=== PATIENT | female | born 1980 | race Caucasian/White ===

== ENCOUNTER 2020-05-07 14:47 | Outpatient (CLI) | payer BC ==
--- NOTE | 2020-05-07 15:35 | RAD ---
Radiograph thoracic spine 3 views: 05/07/2020 HISTORY: 39-year-old female with "compression fracture of thoracic vertebra" Mid back pain. COMPARISON: None FINDINGS: Minimal, right-convex lateral curvature centered at mid T-spine. Thoracic vertebral body heights are maintained. Pedicles appear to be grossly intact on AP view. No high-grade discogenic degenerative changes. Lateral view demonstrates mild, shallow broad depression of superior endplate of T12, incomp letely imaged. This is better demonstrated on the lumbar spine radiograph of 04/29/2020. A noncontrast MRI of the lumbar spine with be able to distinguish whether this is chronic or acute/suba cute. IMPRESSION: No major pathology of thoracic spine identified.
== END 2020-05-07 14:48 | disposition home or self-care (01) ==
LOC: BICRAD 14:47
PROVIDERS: ATTEND Nurse Practitioner Family
DX: S22.000A Wedge compression fracture of unspecified thoracic vertebra, initial encounter for closed fracture (principal)
CPT/HCPCS: 72070

== ENCOUNTER 2020-05-18 11:10 | Outpatient (CLI) | payer BC, OTHER ==
[2020-05-19 12:23] LABS: SARS-CoV-2 MS2 Positive; SARS-CoV-2 N Gene Negative; SARS-CoV-2 S Gene Negative; SARS-CoV-2 orf1ab Negative
== END 2020-05-18 11:11 | disposition home or self-care (01) ==
LOC: LABSCS 11:10
PROVIDERS: ATTEND Nurse Practitioner Family
DX: Z01.812 Encounter for preprocedural laboratory examination (principal); Z11.59 Encounter for screening for other viral diseases
CPT/HCPCS: 87635; U0003

== ENCOUNTER 2020-05-22 09:50 | Day surgery (SDC) | payer BC ==
[2020-05-21 09:47] VITALS: BMI 32.8
[2020-05-22] MEDS ORDERED: Fentanyl 100 MCG/2 ML VIAL ONE ×2 (11:50→14:14)
[2020-05-22] MEDS ORDERED: Ondansetron PF 4 MG/2 ML Vial ONE (13:39)
[2020-05-22] MEDS ORDERED: PROPOFOL 200 MG/20 ML VIAL ONE (13:39)
--- NOTE | 2020-05-22 13:45 | MRI ---
MRI THORACIC SPINE WITHOUT CONTRAST: 05/22/20 INDICATION: History of thoracic spinal compression fracture. COMPARISON: Radiographs dated 05/07/20. FINDINGS: The bone marrow signal intensity appears within normal limits without evidence of acute fracture. Sma ll suspected hemangioma seen within an inferior aspect of the T8 vertebral body. Spinal cord appears within normal limits. Spinal alignment is within normal limits. No appreciable central canal or neura l foraminal narrowing is evident. There are parenchymal opacities seen within the posterior lungs dom aterally which is nonspecific but may reflect subsegmental atelectasis or pneumonia. Recommend correl ation with chest radiograph. IMPRESSION: 1. No acute fracture demonstrated. 2. Parenchymal opacity within both lower lobes may reflect subsegmental atelectasis, edema or pn eumonia. Recommend correlation with a chest radiograph. Code T POS: [id number]
--- NOTE | 2020-05-22 13:46 | MRI ---
MRI Lumbar Spine Noncontrast: HISTORY: Compression fracture thoracic vertebra. Lifting injury in January. Patient claims of severe low to mid back pain. COMPARISON: None FINDINGS: The visualized retroperitoneal structures demonstrate a normal appearance. Conus medullaris is normal in morphology and terminates at the L2-3 level. There is minimal height loss of the superior endplate of the L1 vertebral body, but no marrow edema i s appreciated. The adjacent intervertebral disc demonstrates normal signal intensity. This may be developmental in origin versus minimal remote compression injury. T12-L1: Minimal central disc protrusion is present without significant central canal or neural denisse inal narrowing. L1-2: There is no disc bulge or disc herniation. Central spinal canal and neural foramina are patent. L2-3: There is no disc bulge or disc herniation. Central spinal canal and neural foramina are patent. L3-4: There is no disc bulge or disc herniation. Central spinal canal and neural foramina are patent. L4-5: Tiny focus of increased T2-weighted signal intensity at the posterior central margin of interve rtebral disc likely related to tiny annular tear. There is minimal disc bulge at this level with slight effacement of the ventral aspect of thecal sac. Central spinal canal and neural foramina are p atent. L5-S1: Mild loss of intervertebral disc height. Central disc protrusion is present with AP dimension of approximately 6 mm. This results in mass effect on the central aspect of the anterior thecal sac. Neural foramina are patent. IMPRESSION: 1. Minimal disc degenerative changes lower lumbar spine without significant central canal or neural f oraminal narrowing present.
== END 2020-05-22 14:50 | disposition home or self-care (01) ==
LOC: SDC/OP 09:50
PROVIDERS: ATTEND Nurse Practitioner Family
DX: S22.000A Wedge compression fracture of unspecified thoracic vertebra, initial encounter for closed fracture (principal); S32.000A Wedge compression fracture of unspecified lumbar vertebra, initial encounter for closed fracture; M51.27 Other intervertebral disc displacement, lumbosacral region; M54.16 Radiculopathy, lumbar region; F41.9 Anxiety disorder, unspecified; J45.909 Unspecified asthma, uncomplicated; E78.00 Pure hypercholesterolemia, unspecified; G89.29 Other chronic pain; F32.9 Major depressive disorder, single episode, unspecified; F17.210 Nicotine dependence, cigarettes, uncomplicated; Z79.899 Other long term (current) drug therapy; Z88.5 Allergy status to narcotic agent; X50.0XXA Overexertion from strenuous movement or load, initial encounter
CPT/HCPCS: 72146; 72148; J2001; J2405; J2704; J3010

== ENCOUNTER 2020-08-13 12:15 | Outpatient (CLI) | payer BC | END 2020-08-13 12:16 | disposition home or self-care (01) | LOC: EEG 12:15 | PROVIDERS: ATTEND Psychiatry & Neurology Neurology | DX: G40.209 Localization-related (focal) (partial) symptomatic epilepsy and epileptic syndromes with complex partial seizures, not intractable, without status epilepticus (principal) | CPT/HCPCS: 95816 ==

== ENCOUNTER 2020-08-18 08:48 | Outpatient (CLI) | payer BC, OTHER ==
[2020-08-18 17:27] LABS: SARS-CoV-2 MS2 Positive; SARS-CoV-2 N Gene Negative; SARS-CoV-2 S Gene Negative; SARS-CoV-2 by NAA Not Detected (NotDetected); SARS-CoV-2 orf1ab Negative
== END 2020-08-18 08:49 | disposition home or self-care (01) ==
LOC: LABBT 08:48
PROVIDERS: ATTEND Psychiatry & Neurology Neurology
DX: G40.209 Localization-related (focal) (partial) symptomatic epilepsy and epileptic syndromes with complex partial seizures, not intractable, without status epilepticus (principal); G43.109 Migraine with aura, not intractable, without status migrainosus; Z20.828 Contact with and (suspected) exposure to other viral communicable diseases
CPT/HCPCS: 87635; U0003

== ENCOUNTER 2020-08-21 08:53 | Day surgery (SDC) | payer BC ==
[2020-08-19 12:43] VITALS: BMI 29.2
[2020-08-21] MEDS ORDERED: Fentanyl 100 MCG/2 ML VIAL ONE ×3 (09:04→11:45)
[2020-08-21] MEDS ORDERED: Midazolam HCl 2 mg/2 ml Vial ONE (09:40)
[2020-08-21] MEDS ORDERED: Lidocaine 1% PF 5 ML VIAL ONE (10:24)
[2020-08-21] MEDS ORDERED: PHENYLEPHRINE-NS 100 MCG/ML 10 ML SYRINGE ONE (10:24)
[2020-08-21] MEDS ORDERED: EPHEDRINE 25 MG/5 ML SYRINGE ONE (10:24)
[2020-08-21] MEDS ORDERED: PROPOFOL 200 MG/20 ML VIAL ONE (10:24)
--- NOTE | 2020-08-21 11:56 | MRI ---
MRI BRAIN WITH AND WITHOUT CONTRAST: Date: 08/21/2020 INDICATION: Seizure disorder. FINDINGS: Ventricles have normal size and position. There is no evidence of restricted diffusion. No evidence o f mass or edema. There is no white matter abnormality. No abnormal enhancement. The hippocampal formations appear symmetric. The cerebral arteries, basilar artery, and internal carotid arteries show expected flow-voids. The paranasal sinuses and mastoids appear clear. IMPRESSION: Unremarkable MRI of brain. POS: OFF
[2020-08-21] MEDS ORDERED: Magnevist 469MG/ML 20 ML VIAL ONE (15:35)
== END 2020-08-21 12:54 | disposition home or self-care (01) ==
LOC: SDC/OP 08:53
PROVIDERS: ATTEND Psychiatry & Neurology Neurology
DX: G40.909 Epilepsy, unspecified, not intractable, without status epilepticus (principal); S32.020A Wedge compression fracture of second lumbar vertebra, initial encounter for closed fracture; M51.16 Intervertebral disc disorders with radiculopathy, lumbar region; F41.9 Anxiety disorder, unspecified; J45.909 Unspecified asthma, uncomplicated; E78.00 Pure hypercholesterolemia, unspecified; G89.29 Other chronic pain; F32.9 Major depressive disorder, single episode, unspecified; G43.909 Migraine, unspecified, not intractable, without status migrainosus; Z87.891 Personal history of nicotine dependence; Z79.899 Other long term (current) drug therapy
CPT/HCPCS: 70553; A9579; J2250; J2704; J3010; J7620